=== PATIENT | female | born 1955 | race Caucasian/White ===

== ENCOUNTER 2016-06-20 15:16 | Observation (INO) | payer OTHER ==
[2016-06-20] VITALS (9 sets, daily range): BP systolic 107–176; BP diastolic 67–99; PULSE 73–80; RESP 15–20; TEMP 97.9–98.4; O2SAT 97–100
[~2016-06-20] VITALS: Ht 162.6 cm; Wt 86.0 kg
[~2016-06-20 15:16] MED LIST: LORTA5 PO; SYNT75TA PO
[2016-06-20] MEDS ORDERED: SODIUM CHLORIDE 0.9% FLUSH 5 ML FLUSH IVF PRN ×2 (15:45→17:15)
[2016-06-20 16:10] LABS: AUTOMATED NEUTROPHIL # 5.3 TH/MM3 (1.8-7.7); BASOPHIL # 0.1 TH/MM3 (0-0.2); EOSINOPHIL # 0.1 TH/MM3 (0-0.4); EOSINOPHIL % 1.8 % (0.0-4.0); HEMATOCRIT 41.5 % (35.0-46.0); HEMO FLAGS DIFF FINAL; LYMPH % 17.3 % (9.0-44.0); LYMPHOCYTE # 1.3 TH/MM3 (1.0-4.8); MEAN CELL VOLUME 96.7 FL (80.0-100.0); MEAN CORPUSCULAR HEMOGLOBIN 33.6 PG (27.0-34.0); MEAN CORPUSCULAR HGB CONC 34.7 % (32.0-36.0); MONO % 7.6 % (0.0-8.0); NEUT % 72.3 % (16.0-70.0); PLATELET COUNT 169 TH/MM3 (150-450); RED BLOOD COUNT 4.29 MIL/MM3 (4.00-5.30); RED CELL DISTRIBUTION WIDTH 14.3 % (11.6-17.2); WHITE BLOOD COUNT 7.4 TH/MM3 (4.0-11.0)
[2016-06-20 16:14] LABS: APTT (PATIENT) 26.5 SEC (24.3-30.1); INTERNATIONAL NORMALIZED RATIO 0.9 RATIO; PROTHROMBIN TIME - PATIENT 10.3 SEC (9.8-11.6)
--- NOTE | 2016-06-20 16:18 | RADRPT ---
EXAM DATE/TIME: 06/20/2016 15:49 [facility] COMPARISON: No previous studies available for comparison. INDICATIONS : Chest pain. MEDICAL HISTORY : None. SURGICAL HISTORY : None. ENCOUNTER: Initial ACUITY: 2 days PAIN SCORE: 5/10 LOCATION: Bilateral upper chest FINDINGS: A single view of the chest demonstrates the lungs to be symmetrically aerated without evidence of mas s, infiltrate or effusion. The cardiomediastinal contours are unremarkable. Osseous structures are intact. CONCLUSION: No acute disease. Denny Costa MD FACR on June 20, 2016 at 16:16 Board Certified Radiologist. This report was verified electronically.
[2016-06-20] MEDS ORDERED: LEVO.075 PO (16:27)
--- NOTE | 2016-06-20 16:43 | PD ---
HPI Chief Complaint: Chest Pain Time Seen by Provider: 15:35 Travel History International Travel<30 days: No Contact w/Intl Traveler<30days: No Traveled to known affect area: No History of Present Illness HPI 61-year-old female came to the emergency room with history of chest pain substernal radiating to the left side of her chest into her left arm. This started at 11 AM this morning and associated with dizziness. The pain did not subside she decided to come to the emergency room. Patient has history of high cholesterol and hypertension but does not take any medications. She is a smoker. Currently her pain is 5 out of 10. No history of syncopal episode. Her is here with her. Vital signs are stable. No worsening or relieving factors. PFSH Past Medical History Narrative Medical List of her past medical, surgical, social and family history was reviewed from the nursing note. Hx Anticoagulant Therapy: No Heart Rhythm Problems: No Cardiac Catheterization: No Cardiovascular Problems: Yes (HTN ) High Cholesterol: Yes Chest Pain: Yes Congestive Heart Failure: No Coronary Artery Disease: Yes Diabetes: No Diminished Hearing: No Heparin Induced Thrombocytopen: No Hypertension: Yes Immunizations Current: No Myocardial Infarction: Yes Thyroid Disease: Yes (hyper) Tetanus Vaccination: < 5 Years Influenza Vaccination: Yes ?: Not Menopausal: Yes Past Surgical History Section: Yes (X 1) Coronary Artery Bypass Graft: No Endocrine Surgery: Yes (THYROIDECTOMY) Hysterectomy: Yes Other Surgery: Yes (thyroid) Social History Alcohol Use: Yes (DAILY, RUM DAILY) Tobacco Use: Yes (1 PPD) Substance Use: No Allergies-Medications (Allergen,Severity, Reaction): Coded Allergies: Codeine (Verified Allergy, Mild, 06/20/16) Comments List of her allergies reviewed from the nursing note. Reported Meds & Prescriptions Reported Meds & Active Scripts Active Reported Synthroid (Levothyroxine Sodium) 75 Mcg Tab 75 Mcg PO DAILY Narrative Medication List of her home medications reviewed from the nursing note. Review of Systems Except as stated in HPI: all other systems reviewed are Neg Physical Exam Narrative GENERAL: Awake, alert, obese, mild distress SKIN: Warm and dry. Xanthelasma HEAD: Atraumatic. Normocephalic. EYES: Pupils equal and round. No scleral icterus. No injection or drainage. ENT: No nasal bleeding or discharge. Mucous membranes pink and moist. NECK: Trachea midline. No JVD. CARDIOVASCULAR: Regular rate and rhythm. No murmur appreciated. RESPIRATORY: No accessory muscle use. Clear to auscultation. Breath sounds equal bilaterally. GASTROINTESTINAL: Abdomen soft, non-tender, nondistended. Hepatic and splenic margins not palpable. MUSCULOSKELETAL: No obvious deformities. No clubbing. No cyanosis. No edema. NEUROLOGICAL: Awake and alert. No obvious cranial nerve deficits. Motor grossly within normal limits. Normal speech. PSYCHIATRIC: Appropriate mood and affect; insight and judgment normal. Data Data Last Documented VS Vital Signs Date Time Temp Pulse Resp B/P Pulse Ox O2 Delivery O2 Flow Rate FiO2 06/20/16 17:00 73 15 98 Nasal Cannula 2 06/20/16 15:26 97.9 Orders Electrocardiogram (06/20/16 ) Basic Metabolic Panel (Bmp) (06/20/16 15:35) Ckmb (Isoenzyme) Profile (06/20/16 15:35) Complete Blood Count With Diff (06/20/16 15:35) Magnesium (Mg) (06/20/16 15:35) Prothrombin Time / Inr (Pt) (06/20/16 15:35) Act Partial Throm Time (Ptt) (06/20/16 15:35) Troponin I (06/20/16 15:35) Chest, Single Ap (06/20/16 15:35) Aspirin Chew (Aspirin Chew) (06/20/16 16:45) Admit Order (Ed Use Only) (06/20/16 17:11) Place In Observation (06/20/16 17:12) Activity Bed Rest With Brp (06/20/16 17:12) Vital Signs (Adult) Q4H (06/20/16 17:12) Cardiac Rhythm .As Directed (06/20/16 17:12) ^ Notify Dr: Other .PRN (06/20/16 17:12) ^ Notify Dr. Parameters (06/20/16 17:12) Resp Oxygen Nasal Cannula (06/20/16 ) Diet Heart Healthy (06/20/16 Dinner) Ckmb (Isoenzyme) Profile (06/20/16 17:12) Ckmb (Isoenzyme) Profile (06/20/16 20:12) Troponin I (06/20/16 17:12) Troponin I (06/20/16 20:12) Electrocardiogram (06/20/16 20:12) ^ Obtain (06/20/16 17:12) Sodium Chloride 0.9% Flush (Ns Flush) (06/20/16 17:15) Sodium Chloride 0.9% Flush (Ns Flush) (06/20/16 21:00) Acetaminophen (Tylenol) (06/20/16 17:15) Ondansetron Inj (Zofran Inj) (06/20/16 17:15) Nitroglycerin Sl (Nitrostat Sl) (06/20/16 17:15) Sheet Rock Taper / Telemetry QUIN.Q8H (06/20/16 17:12) Labs Laboratory Tests Test 06/20/16 15:40 White Blood Count 7.4 TH/MM3 Red Blood Count 4.29 MIL/MM3 Hemoglobin 14.4 GM/DL Hematocrit 41.5 % Mean Corpuscular Volume 96.7 FL Mean Corpuscular Hemoglobin 33.6 PG Mean Corpuscular Hemoglobin 34.7 % Concent Red Cell Distribution Width 14.3 % Platelet Count 169 TH/MM3 Mean Platelet Volume 8.1 FL Neutrophils (%) (Auto) 72.3 % Lymphocytes (%) (Auto) 17.3 % Monocytes (%) (Auto) 7.6 % Eosinophils (%) (Auto) 1.8 % Basophils (%) (Auto) 1.0 % Neutrophils # (Auto) 5.3 TH/MM3 Lymphocytes # (Auto) 1.3 TH/MM3 Monocytes # (Auto) 0.6 TH/MM3 Eosinophils # (Auto) 0.1 TH/MM3 Basophils # (Auto) 0.1 TH/MM3 CBC Comment DIFF FINAL Differential Comment Prothrombin Time 10.3 SEC Prothromb Time International 0.9 RATIO Ratio Activated Partial 26.5 SEC Thromboplast Time Sodium Level 139 MEQ/L Potassium Level 3.9 MEQ/L Chloride Level 103 MEQ/L Carbon Dioxide Level 28.0 MEQ/L Anion Gap 8 MEQ/L Blood Urea Nitrogen 16 MG/DL Creatinine 0.96 MG/DL Estimat Glomerular Filtration 59 ML/MIN Rate Random Glucose 116 MG/DL Calcium Level 9.0 MG/DL Magnesium Level 2.2 MG/DL Total Creatine Kinase 94 U/L Troponin I LESS THAN 0.02 NG/ML MDM Medical Decision Making Medical Screen Exam Complete: Yes Emergency Medical Condition: Yes Medical Record Reviewed: Yes Interpretation(s) Twelve-lead EKG was reviewed by me. Normal sinus rhythm, normal axis, nonspecific ST-T wave changes. Heart rate of 80 bpm. Differential Diagnosis ACS, non-STEMI, nonspecific chest pain Narrative Course 5:16 PM blood test results are back. Troponin is within normal limits. Patient was given 2 baby aspirin's. Patient does have risk factors including smoking, uncontrolled blood pressure and cholesterol. I would admit her to the chest pain center to rule out ACS. Patient understands this plan. She is okay with it. Procedures EKG Prior to Arrival: Yes Diagnosis Primary Impression: Chest pain Qualified Code: R07.9 - Chest pain, unspecified type Admitting Information Admitting Physician Requests: Observation Kenton Kate MD Jun 20, 2016 16:43 Qualified Code: R07.9 - Chest pain, unspecified type Admitting Information Admitting Physician Requests: Observation Kenton Kate MD Jun 20, 2016 16:43
[2016-06-20] MEDS ORDERED: ASPIRIN 81 MG CHEW TAB CHEW ONE (16:45)
[2016-06-20 16:48] LABS: ANION GAP 8 MEQ/L (5-15); BLOOD UREA NITROGEN 16 MG/DL (7-18); CHLORIDE 103 MEQ/L (98-107); GLOMERULAR FILTRATION RATE 59 ML/MIN (>89); MAGNESIUM 2.2 MG/DL (1.5-2.5); POTASSIUM 3.9 MEQ/L (3.5-5.1); SODIUM (NA) 139 MEQ/L (136-145)
[2016-06-20 16:49] LABS: CREATINE KINASE 94 U/L (26-192)
[2016-06-20] MEDS ORDERED: NITROGLYCERIN 0.4 MG SL 25 TABS/BTL SL PRN (17:15)
[2016-06-20] MEDS ORDERED: ONDANSETRON HCL 4 MG/2 ML VIAL IV PRN (17:15)
[2016-06-20] MEDS ORDERED: ACETAMINOPHEN 500 MG CPLT PO PRN (17:15)
[2016-06-20 19:54] LABS: CREATINE KINASE 81 U/L (26-192)
[2016-06-20] MEDS: SODIUM CHLORIDE 0.9% FLUSH 5 ML FLUSH IVF SCH (21:00)
[2016-06-20 23:06] LABS: CREATINE KINASE 73 U/L (26-192)
[2016-06-21] VITALS: PULSE 76
[2016-06-21 00:46] VITALS: BP 128/79; PULSE 78; RESP 20; TEMP 98.3; O2SAT 98
[2016-06-21 03:53] VITALS: PULSE 53
[2016-06-21 04:24] VITALS: BP 111/63; PULSE 70; RESP 20; TEMP 98.3; O2SAT 95
[2016-06-21 07:11] VITALS: BP 123/72; PULSE 70; RESP 19; TEMP 97.6; O2SAT 95
[2016-06-21] MEDS: SODIUM CHLORIDE 0.9% FLUSH 5 ML FLUSH IVF SCH (09:00)
[2016-06-21] MEDS ORDERED: ASPIRIN 325 MG TAB PO SCH (09:30)
[2016-06-21] MEDS ORDERED: ASPIRIN 325 MG TAB ONE (09:38)
[2016-06-21] MEDS ORDERED: REGADENOSON INJ 0.4 MG/5 ML SYR ONE (10:22)
--- NOTE | 2016-06-21 10:26 | HHI.HP ---
HPI Primary Care Physician No Primary Care Physician due to change in insurance. Recently received insurance has plans to find a new PCP. Chief Complaint Chest pressure and dizziness History of Present Illness 61-year-old female with known hypothyroidism and smoker presents with an onset of dizziness and chest pressure yesterday at 11 AM. Location substernal characterized as a "pressure not a sharp pain" severity initially was 5/10, currently 3/10. Intensity has waxed and waned, has been constant, has not gone away. There is radiation to her left anterior chest. Associated symptoms including dizziness. No nausea, vomiting, shortness of breath, or diaphoresis. No known precipitating factors. Continues to have dizziness when walking or with quick movements of head. Reports intermittent left hand "pins and needles " since yesterday. No relieving factors. No trauma or known injury. Has never had chest discomfort in the past. Review of Systems General: No fatigue,weakness, fever, chills, recent travel, recent illness, or change in appetite HEENT: No GERARD, no vision changes, no nasal congestion or drainage, no dysphasia CV: As stated above. No palpitations or intermittent leg pain. Intermittent dizziness with particular movements or ambulation. States she "feels drunk with movement." RESP: No SOB, cough, wheeze, hemoptysis GI: No nausea, vomiting, bowel changes, diarrhea, constipation, pain, distention , melena, blood in the stool. No change in appetite, no unintentional weight gain or weight loss : No dysuria, urgency, frequency, or hematuria EXT: No lower leg edema, left hand "pins and needles." No change in strength. MS: No discomfort or change in ROM NEURO: No change in memory, dizziness, difficulty with balance, LOC, motor/ sensory deficits PSYCH: No anxiety or depression. Endorses situational stress. SKIN: No rashes, no concerning lesions Past Family Social History Allergies: Coded Allergies: Codeine (Verified Allergy, Mild, 06/20/16) Past Medical History Hypothyroidism Past Surgical History Thyroidectomy, hysterectomy, Reported Medications Active Reported Synthroid (Levothyroxine Sodium) 75 Mcg Tab 75 Mcg PO DAILY No other supplements, herbal, or daily [id number] medication Active Ordered Medications Current Medications Medications (Trade) Dose Ordered Sig/Gordon Route Start Time Stop Time Status Last Admin (Tylenol) 500 mg Q4H PRN PO 06/20/16 17:15 (Zofran Inj) 4 mg Q6H PRN IV 06/20/16 17:15 (Nitrostat Sl) 0.4 mg Q5M PRN SL 06/20/16 17:15 (Aspirin) 325 mg DAILY PO 06/21/16 09:30 (Synthroid) 75 mcg DAILY@0600 PO 06/22/16 06:00 Family History Noncontributory for early onset cardiovascular disease Social History She is , 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 Is a life long smoker, smokes 1 pack cigarettes daily. Denies alcohol or illegal drug use. Was told she has high cholesterol, currently not taking any medications. Was taking a cholesterol medication although lost her insurance, primary care provider, therefore was unable to perceive a refill. Unknown name of medication she was prescribed. No known hypertension or diabetes. Recently obtained insurance and is in the process of finding a primary care provider. Physical Exam Vital Signs Vital Signs Date Time Temp Pulse Resp B/P Pulse Ox O2 Delivery O2 Flow Rate FiO2 06/21/16 07:11 97.6 70 19 123/72 95 06/21/16 04:24 98.3 70 20 111/63 95 06/21/16 03:53 53 06/21/16 00:46 98.3 78 20 128/79 98 06/21/16 00:00 76 06/20/16 21:26 80 06/20/16 21:07 98.4 74 20 112/67 97 06/20/16 19:00 77 16 107/69 98 Nasal Cannula 2 06/20/16 18:00 76 16 110/84 98 Nasal Cannula 2 06/20/16 17:00 73 15 98 Nasal Cannula 2 06/20/16 15:51 76 18 119/83 100 Nasal Cannula 2 06/20/16 15:50 76 119/83 06/20/16 15:43 77 170/97 06/20/16 15:40 100 Nasal Cannula 2 06/20/16 15:31 98 Nasal Cannula 06/20/16 15:26 97.9 77 18 170/97 98 Room Air 06/20/16 15:26 97.9 77 16 176/99 98 Physical Exam GENERAL: Alert WN, WD, NAD, pleasant, female HEAD: NC, AT EYES: Sclera clear, conjunctiva without injection, pupils equal and round ENT: Mucous membranes pink and moist, no nasal discharge or bleeding NECK: Supple, no masses, trachea midline CV: RRR, without murmur, rub, gallop, no JVD, S1-S2 no S3-S4. No carotid bruits RESP: Clear lungs throughout bilateral, no crackles, wheeze, rhonchi, symmetrical chest rise, nonlabored, able to speak in full sentences ABD: Soft, obese, NT, ND, no masses, positive bowel tones BACK: No CVAT, no scoliosis EXT: Pulses +24, no dependent edema MS: Normal tone 4 extremities, nontender, no obvious deformities, full range of motion NEURO: CN II through CN XII grossly intact, motor strength 5/5, gait WNL PSYCH: A+O 3, pleasant affect, appropriate speech, appropriate mood and affect , insight and judgment SKIN: Normal turgor, normal texture, no lesions, no rashes, brisk cap refill Laboratory Laboratory Tests Test 06/20/16 06/20/16 06/20/16 15:40 18:40 22:00 White Blood Count 7.4 Red Blood Count 4.29 Hemoglobin 14.4 Hematocrit 41.5 Mean Corpuscular Volume 96.7 Mean Corpuscular Hemoglobin 33.6 Mean Corpuscular Hemoglobin 34.7 Concent Red Cell Distribution Width 14.3 Platelet Count 169 Mean Platelet Volume 8.1 Neutrophils (%) (Auto) 72.3 Lymphocytes (%) (Auto) 17.3 Monocytes (%) (Auto) 7.6 Eosinophils (%) (Auto) 1.8 Basophils (%) (Auto) 1.0 Neutrophils # (Auto) 5.3 Lymphocytes # (Auto) 1.3 Monocytes # (Auto) 0.6 Eosinophils # (Auto) 0.1 Basophils # (Auto) 0.1 CBC Comment DIFF FINAL Differential Comment Prothrombin Time 10.3 Prothromb Time International 0.9 Ratio Activated Partial 26.5 Thromboplast Time Sodium Level 139 Potassium Level 3.9 Chloride Level 103 Carbon Dioxide Level 28.0 Anion Gap 8 Blood Urea Nitrogen 16 Creatinine 0.96 Estimat Glomerular Filtration 59 Rate Random Glucose 116 Calcium Level 9.0 Magnesium Level 2.2 Total Creatine Kinase 94 81 73 Troponin I LESS THAN 0.02 LESS THAN 0.02 LESS THAN 0.02 Result Diagram: 06/20/16 1540 06/20/16 1540 Imaging Last Impressions Chest X-Ray 06/20/16 1535 Signed Impressions: Service Date/Time: Monday, June 20, 2016 15:49 - CONCLUSION: No acute disease. Denny Costa MD FACR Course EKGs 3 EKGs show normal sinus rhythm Assessment and Plan Assessment and Plan #1 Chest painadmitted to chest pain center. Was ruled out with 3 EKGs, cardiac enzymes, and monitored throughout evening. Will be seen and evaluated by Dr. Crys Garcia. Discussed with patient next step would be to complete a chemical stress test. Due to her dizziness chemical stress test ordered. #2 Hypothyroidismcontinue levothyroxine #3 Tobacco usediscussed and counseled with patient the importance of tobacco sensation. Encouraged patient to quit smoking. # 4 Dizziness-no acute findings, follow with primary care sales representative. Lena Power Jun 21, 2016 10:26
[2016-06-21 11:38] VITALS: BP 103/70; PULSE 73; RESP 20; TEMP 97.3; O2SAT 97
--- NOTE | 2016-06-21 12:06 | RADRPT ---
EXAM DATE/TIME: 06/21/2016 09:54 [facility] COMPARISON: No previous studies available for comparison. INDICATIONS : Chest pain for 1 day. Angina. Myocardial infarction. DOSE: 25.8 mCi Tc99m Myoview at stress. 8.7 mCi Tc99m Myoview at rest. 0.4 mg Lexiscan STRESS SYMPTOMS: Nausea stomach cramping. EJECTION FRACTION: 63% MEDICAL HISTORY : Hypertension. Hypercholesterolemia. SURGICAL HISTORY : section. Hysterectomy. ENCOUNTER: Initial ACUITY: 1 day PAIN SCALE: 2/10 LOCATION: Bilateral chest TECHNIQUE: The patient underwent pharmacologic stress with infusion of prescribed dose. Continuous ECG tracing was monitored during stress. Gated SPECT imaging was performed after stress and conventional SPECT i maging was performed at rest. The examination was performed on a SPECT/CT scanner, both attenuation and non-corrected datasets were reviewed. FINDINGS: DISTRIBUTION: The maximum perfused segment at stress is in the anterior wall. PERFUSION STUDY: Reversible perfusion defects are not seen. GATED STUDY: There is intact wall motion and thickening without hypokinetic or dyskinetic segments. CONCLUSION: 1. No reversible perfusion defects to suggest ischemia. 2. Normal ejection fraction. RISK CATEGORY: Low (<1% Annual Mortality Rate) Jhonny Estrada MD on June 21, 2016 at 11:37 Board Certified Radiologist. This report was verified electronically.
--- NOTE | 2016-06-21 12:18 | HHI.DCPOC ---
Discharge Care Plan Diagnosis: (1) Atypical chest pain (2) Dizziness, nonspecific Goals to Promote Your Health * To prevent worsening of your condition and complications * To maintain your health at the optimal level Directions to Meet Your Goals Take your medications as prescribed Follow your dietary instruction Follow activity as directed Keep your appointments as scheduled Take your immunizations and boosters as scheduled If your symptoms worsen call your PCP, if no PCP go to Urgent Care Center or Emergency Room Smoking is Dangerous to Your Health. Avoid second hand smoke Call the 24-hour hour crisis hotline for domestic abuse at Lena Power Jun 21, 2016 12:18
--- NOTE | 2016-06-21 21:28 | TR ---
Date Performed: 06/21/2016 Time Performed: 10:30:52 DOCTOR: Crys Garcia DRUG LIST: CLINICAL HISTORY: REASON FOR TEST: Angina REASON FOR ENDING: OBSERVATION: CONCLUSION: Lexiscan stress test was performed under standard four minute protocol. Radionuclid e was injected one minute prior to ending the test. No electrocardiographic abormalities were present to suggest ischemia. Nuclear imaging and interpretation are pending. COMMENTS:
--- NOTE | 2016-06-21 21:31 | EKG ---
Date Performed: 06/20/2016 Time Performed: 18:43:22 PTAGE: 61 years EKG: Sinus rhythm POSSIBLE RIGHT VENTRICULAR CONDUCTION DELAY POSSIBLE INFERIOR MYOCARDIAL INFARCTION BORDERLINE ECG S des PREVIOUS TRACING , no significant change noted PREVIOUS TRACIN06/20/2016 15.27 DOCTOR: Crys Garcia Interpretating Date/Time 06/21/2016 21:29:40
--- NOTE | 2016-06-21 21:32 | EKG ---
Date Performed: 06/20/2016 Time Performed: 15:27:22 PTAGE: 61 years EKG: Sinus rhythm POSSIBLE RIGHT VENTRICULAR CONDUCTION DELAY PROBABLE INFERIOR MYOCARDIAL INFARCTION ABNORMAL ECG Sin ce PREVIOUS TRACING , no significant change noted PREVIOUS TRACIN11/02/2011 12.56 DOCTOR: Crys Garcia Interpretating Date/Time 06/21/2016 21:30:49
--- NOTE | 2016-06-21 21:32 | EKG ---
Date Performed: 06/20/2016 Time Performed: 22:06:12 PTAGE: 61 years EKG: Sinus rhythm POSSIBLE RIGHT VENTRICULAR CONDUCTION DELAY PROBABLE INFERIOR MYOCARDIAL INFARCTION ABNORMAL ECG Sin ce PREVIOUS TRACING , no significant change noted PREVIOUS TRACIN06/20/2016 18.43 DOCTOR: Crys Garcia Interpretating Date/Time 06/21/2016 21:30:10
[2016-06-22] MEDS ORDERED: LEVOTHYROXINE SODIUM 75 MCG TAB PO SCH (06:00)
--- NOTE | 2016-06-22 23:43 | EKG ---
Date Performed: 06/21/2016 Time Performed: 09:24:40 PTAGE: 61 years EKG: Sinus rhythm POSSIBLE RIGHT VENTRICULAR CONDUCTION DELAY POSSIBLE INFERIOR MYOCARDIAL INFARCTION BORDERLINE ECG NO PREVIOUS TRACING DOCTOR: Cha Lantigua Interpretating Date/Time 06/22/2016 23:41:57
[2016-07-18] MEDS ORDERED: LEVO125T4 PO (10:17)
[2016-07-18] MEDS ORDERED: ASPI81CH CHEW (10:23)
== END 2016-06-21 13:41 | disposition home or self-care (01) ==
LOC: NEPC 15:16 → NEDA 17:13 → NEPGCP 20:42
PROVIDERS: ADMIT Internal Medicine Cardiovascular Disease; ATTEND Internal Medicine Cardiovascular Disease
DX: R07.9 Chest pain, unspecified (principal); R42 Dizziness and giddiness; I10 Essential (primary) hypertension; E78.00 Pure hypercholesterolemia, unspecified; I25.10 Atherosclerotic heart disease of native coronary artery without angina pectoris; I25.2 Old myocardial infarction; F17.210 Nicotine dependence, cigarettes, uncomplicated; E03.9 Hypothyroidism, unspecified; R20.2 Paresthesia of skin; R94.31 Abnormal electrocardiogram [ECG] [EKG]
CPT/HCPCS: 71010; 78452; 80048; 82550; 83735; 84484; 85025; 85610; 85730; 93005; 93017; 99285; A9502; G0378; J2785

== ENCOUNTER 2017-10-03 07:45 | Emergency (ER) | payer OTHER ==
[~2017-10-03 07:45] MED LIST changes: +ASPI-516 CHEW; +LEVO125T4 PO; -LORTA5 PO; -SYNT75TA PO
[2017-10-03 08:05] VITALS: BP 226/106; PULSE 80; RESP 17; TEMP 97.4; O2SAT 99
[2017-10-03] MEDS ORDERED: PRED50 PO (09:05)
[2017-10-03] MEDS ORDERED: HYDR50TA94 PO (09:05)
--- NOTE | 2017-10-03 09:05 | PD ---
HPI . Bug bite Chief Complaint: Skin Problem Time Seen by Provider: 08:51 Travel History International Travel<30 days: No Contact w/Intl Traveler<30days: No Traveled to known affect area: No History of Present Illness HPI Patient presents with chief complaint of bug bites to her left upper extremity. Onset was a couple days ago. She states that her doctor prescribed triamcinolone cream and Bactroban. She has been using this as directed but states that she is getting worse rather than better. She states that her pain is severe and rates at 7/10. She states that her arm feels like it has fever in it and that she has associated swelling. PFSH Past Medical History Hx Anticoagulant Therapy: No Heart Rhythm Problems: No Cardiovascular Problems: Yes (HTN ) High Cholesterol: Yes Chest Pain: Yes Congestive Heart Failure: No Coronary Artery Disease: Yes Diabetes: No Diminished Hearing: No Heparin Induced Thrombocytopen: No Hypertension: Yes Respiratory: Yes (COPD) Immunizations Current: Yes Myocardial Infarction: Yes Thyroid Disease: Yes (hyper) Tetanus Vaccination: < 5 Years Influenza Vaccination: No ?: Not Menopausal: Yes Past Surgical History Section: Yes (X 1) Endocrine Surgery: Yes (THYROIDECTOMY) Hysterectomy: Yes Other Surgery: Yes (thyroid) Social History Alcohol Use: Yes (DAILY, RUM DAILY) Tobacco Use: Yes (1 PPD) Substance Use: No Allergies-Medications (Allergen,Severity, Reaction): Coded Allergies: codeine (Unverified Allergy, Mild, 12/04/16) Reported Meds & Prescriptions Reported Meds & Active Scripts Active Levothyroxine (Levothyroxine Sodium) 125 Mcg Tab 125 Mcg PO DAILY Reported Aspirin 81 Mg Chew 81 Mg CHEW DAILY Review of Systems Except as stated in HPI: all other systems reviewed are Neg Physical Exam Narrative GENERAL: Awake and alert and in no acute distress. SKIN: Warm and dry. Normal color and turgor. She has several scattered erythematous patches on the left upper extremity. They are slightly swollen and warm to the touch. The skin between the erythematous patches is normal- appearing. HEAD: Normocephalic/atraumatic. EYES: Pupils are equal. Extraocular movements are intact. NECK: Normal range of motion. Supple. CARDIOVASCULAR: Regular rate and rhythm. RESPIRATORY: Nonlabored respirations. Normal sats. MUSCULOSKELETAL: Atraumatic. Normal muscle tone. NEUROLOGICAL: A and O 3. Nonfocal. PSYCHIATRIC: Appropriate mood and affect. Data Data Last Documented VS Vital Signs Date Time Temp Pulse Resp B/P (MAP) Pulse Ox O2 Delivery O2 Flow Rate FiO2 10/03/17 08:05 97.4 80 17 226/106 (146) 99 MDM Medical Decision Making Medical Screen Exam Complete: Yes Emergency Medical Condition: Yes Differential Diagnosis The differential diagnosis of the skin rash includes but is not limited to allergic urticaria, scabies, insect bites, contact dermatitis Narrative Course This patient presents with a chief complaint of bug bites to her left upper extremity. They are currently being treated with triamcinolone cream and Bactroban. She states that they are getting worse rather than better. On exam , she has erythematous patches scattered on her left upper extremity which are compatible with localized allergic reaction to bug bites. I will discharge her to home with a prescription for oral prednisone and Atarax. She will be instructed to use cool compresses. Diagnosis Primary Impression: Localized allergic reaction to bug bites Patient Instructions: General Allergic Reaction (ED), General Instructions Med/Other Pt SpecificInfo: Prescription(s) given Scripts Hydroxyzine HCl (Hydroxyzine HCl) 50 Mg Tab 50 MG PO QID Y for RASH, #30 TAB 0 Refills Prov: Telma Hopkins MD 10/03/17 Prednisone (Prednisone) 50 Mg Tab 50 MG PO DAILY for 5 Days, #5 TAB 0 Refills Prov: Telma Hopkins MD 10/03/17 Disposition: 01 DISCHARGE HOME Condition: Stable Telma Hopkins MD Oct 03, 2017 09:05
[2017-10-03 09:17] VITALS: BP 192/86
== END 2017-10-03 09:24 | disposition home or self-care (01) ==
LOC: NEPE 07:45
DX: T78.40XA Allergy, unspecified, initial encounter (principal); W57.XXXA Bitten or stung by nonvenomous insect and other nonvenomous arthropods, initial encounter; I10 Essential (primary) hypertension; I25.10 Atherosclerotic heart disease of native coronary artery without angina pectoris; I25.2 Old myocardial infarction; E78.00 Pure hypercholesterolemia, unspecified; E05.90 Thyrotoxicosis, unspecified without thyrotoxic crisis or storm; J44.9 Chronic obstructive pulmonary disease, unspecified; F17.210 Nicotine dependence, cigarettes, uncomplicated; Z88.5 Allergy status to narcotic agent; Z79.2 Long term (current) use of antibiotics; Z79.899 Other long term (current) drug therapy
CPT/HCPCS: 99283